=== PATIENT | female | born 1995 | race American Indian/Alaskan Native ===

== ENCOUNTER 2017-05-23 09:43 | Emergency (ER) | payer MEDICAID, OTHER ==
[2017-05-23 10:21] VITALS: BP 115/70
--- NOTE | 2017-05-23 10:48 | Emergency Department Report ---
Chief Complaint: Abdominal Pain Stated Complaint: ABDOMINAL PAIN Time Seen by Provider: 05/23/17 10:48 - HPI History of Present Illness: Patient here reports that she took a test and it was positive. She has no care. She said her last period was 01/03/2017. She says she is having pain to her right mid lateral abdomen since yesterday. Patient states that she normally has white discharge but discharge has increased since her . Pain is 4 out of 10 and cramping. Denies any urinary burning frequency or urgency. Denies any fever or chills. Denies any vaginal bleeding. - ROS Review of Systems: All systems are negative unless stated in HPI above - Exam Vital Signs: Vital Signs 05/23/17 10:16 Temperature 97.4 F L Pulse Rate 87 Respiratory 18 Rate Blood Pressure 115/70 O2 Sat by Pulse 100 Oximetry Physical Exam: Gen.: 22-year-old female well-nourished well-developed in no acute distress. Abdomen: Normal bowel sounds, no rigidity. Protruding. Negative CVA tenderness MSE screening note: Focused history and physical exam performed. Due to findings the following was ordered: ED Medical Decision Making - Medical Decision Making MDM: Patient screened by provider in triage area. Appropriate protocol initiated and patient to be seen in main ED by ED Disposition for MSE Condition: Stable Instructions: Abdominal Pain (ED)
[2017-05-23 11:07] LABS: Basophils % (Auto) 0.2 % (0.0-1.8); Eosinophils % (Auto) 1.8 % (0.0-4.3); Hemoglobin 11.9 gm/dl (10.1-14.3); Mean Corpuscular HGB Conc 34 % (30-34); Mean Corpuscular Hemoglobin 32 pg (28-32); Mean Corpuscular Volume 92 fl (79-97); Platelet Count 138 K/mm3 (140-440); Red Blood Count 3.79 M/mm3 (3.65-5.03); White Blood Count 10.8 K/mm3 (4.5-11.0)
[2017-05-23 11:21] LABS: Alanine Aminotransferase 8 units/L (7-56); Albumin 3.3 g/dL (3.9-5); Albumin/Globulin Ratio 1.1 %; Alkaline Phosphatase 52 units/L (35-129); Anion Gap 18 mmol/L; BUN/Creatinine Ratio 6; Blood Urea Nitrogen 3 mg/dL (7-17); Calcium 8.4 mg/dL (8.4-10.2); Carbon Dioxide 21 mmol/L (22-30); Chloride 99.3 mmol/L (98-107); Glucose 68 mg/dL (65-100); Lipase 34 units/L (13-60); Potassium 3.7 mmol/L (3.6-5.0); Sodium 135 mmol/L (137-145); Total Protein 6.2 g/dL (6.3-8.2)
[2017-05-23 12:10] LABS: Bacteria,Urine 1+ /HPF (Negative); Bilirubin,Urine NEG (Negative); Blood,Urine NEG (Negative); Ketones,Urine NEG (Negative); Leukocyte Esterase,Urine LG (Negative); Mucus,Urine 2+ /HPF; Nitrite,Urine NEG (Negative); Protein,Urine <15 mg/dL mg/dL (Negative); Urobilinogen,Urine < 2.0 mg/dL (<2.0)
--- NOTE | 2017-05-23 13:00 | Ultrasound Report ---
Gestation: single Position: cephalic Amniotic Fluid: Normal WALTER = cm Placenta: posterior,fundal Placental Grade: 0 Heart Rate: 152 BPM Cervical length: 3 cm (Normal > 3 cm) NEUROANATOMY VISUALIZED: Choroid Plexus Cisterna Magnum Cerebellum Lateral Ventricle ANATOMY VISUALIZED: Stomach Kidneys Bladder Diaphragm 4 Chamber Heart Heart 3 Vessel Cord Abd. Cord Insert SPINE VISUALIZED: Longitudinal Transverse AP BPD: 4.9 cm = 20 w 6 d HC: 17.4 cm = 20 w 0 d AC: 15.6 cm = 20 w 5 d FL: 3.4 cm = 20 w 3 d HC/AC Ratio: 1.1 Cephalic Index: 90.2 Estimated Weight: 364 grams LMP: 12/29/16 Clinical age = 20 w 5 d EDC: 10/05/17 US Gest. Age = 20 w 4 d EDC: 10/06/17 Comment: A prominent ovarian cyst on the left measures 7.0 x 5.5 x 6.2 cm.
== END 2017-05-23 10:55 | disposition left against medical advice (07) ==
LOC: ED 09:43
DX: R10.9 Unspecified abdominal pain (principal); Z53.21 Procedure and treatment not carried out due to patient leaving prior to being seen by health care provider
CPT/HCPCS: 36415; 76805; 80053; 81001; 83690; 84703; 85025; 86850; 86900; 86901